=== PATIENT | female | born 1950 | race Caucasian/White ===

== ENCOUNTER 2016-11-28 23:41 | Inpatient (IN) | payer OTHER, MEDICAID ==
[~2016-11-28] VITALS: Ht 160 cm; Wt 79.0 kg
--- NOTE | ~2016-11-28 | PR ---
[place], [place] [facility]GR[id number] UN[facility] #: [id number] ROOM: 317 DOCTOR: Karina RODRIGUEZ,GERHARD BIRTHDATE: [birth year] DOS: 12/03/2016 SUBJECTIVE: The patient seen and spoke with the staff. Per staff, the patient is doing well. Still isolated, but no behavioral problems or issues. Med compliant. The patient was pleasant, cooperative. She looks bright. She changed her clothes and took a shower. She said that she is feeling better, taking her medication regularly and did not have any side effects. She denied depressed mood or hopelessness. Denied any other neurovegetative signs and symptoms of depression. She reports good sleep and appetite. MENTAL STATUS EXAMINATION: The patient was pleasant, cooperative. Described her mood as "better." Affect, mood congruent. Thought process goal directed. No flight of ideas, loosening of association. She denied auditory or visual hallucination. No delusion or paranoia noted. She denied suicidal ideation, intent or plan. She also denied homicidal ideation, intent or plan. Insight and judgment fair. ASSESSMENT: Schizoaffective disorder. PLAN: 1. Continue current medication and care. 2. Continue redirection. 3. Supportive care. GERHARD RODRIGUEZ MD CM:COLUMBA [phone] Karina RODRIGUEZ 12/04/16 0139 interface
--- NOTE | ~2016-11-28 | PR ---
[place], [place] PROGRESS NOTE [id number] UNIT #: [id number] ROOM: 317 DOCTOR: Karina RODRIGUEZ,GERHARD BIRTHDATE: [birth year] DOS: 12/01/2016 SUBJECTIVE: The patient seen and spoke with the staff. Per staff, the patient is doing well. Slept all night. Took her medication and attending groups. She did not have any behavior problems or issues. The patient was pleasant, cooperative. She was in her room. She said that she is doing good. She is taking her medication regularly and did not have any side effect. Still have some paranoia, but she said that they are getting better. She reports good sleep and appetite. MENTAL STATUS EXAMINATION: The patient was pleasant and cooperative. Described her mood as "okay." Affect was guarded. Thought process goal directed. No flight of ideas, loosening of association. She denied auditory or visual hallucination. She still had some paranoia. Denied suicidal ideation, intent or plan. She also denied homicidal ideation, intent or plan. ASSESSMENT: Schizoaffective disorder. PLAN: 1. Continue current medication and care. 2. Continue redirection. 3. Encourage activity and groups. GERHARD RODRIGUEZ MD CM:COLUMBA 0200 Karina RODRIGUEZ 12/02/16 0159 interface
--- NOTE | ~2016-11-28 | DS ---
[place], [place] DISCHARGE SUMMARY NAME: BECKI RUSSELL UNIT #: [id number] ROOM: 317 DOCTOR: Karina RODRIGUEZGERHARD BIRTHDATE: [birth year] DOS: 12/08/2016 HISTORY OF PRESENT ILLNESS: The patient was seen and chart reviewed. A 65-year-old white female with long history of schizoaffective disorder, who was actually brought into the ER by EMS after her primary care physician called. Reportedly, the patient went to see her primary care physician, Dr. Clark, who then called the ambulance to take her to the ER because the patient was stating that she wanted to kill herself. She said that she was thinking about shooting herself on her head. In the ER, the patient got medically cleared and then admitted to the psychiatric unit for further care and stabilization. PAST PSYCHIATRIC HISTORY: The patient mentioned that she had 6-7 prior psychiatric hospitalizations, ____ prior suicide attempts. No suicide in the family. Denied having any gun at home. PAST MEDICAL HISTORY: Significant for hypertension, status post stroke. SOCIAL HISTORY: She was born and raised in [place], [place], had 4 years of college, never , no kids. She is retired now, on SSI. She lives by herself. She has a sister with whom she does not have any good relationship with. She denied any history of physical or sexual abuse. SUBSTANCE ABUSE HISTORY: The patient denied any drugs or alcohol. ADMISSION MENTAL STATUS EXAMINATION: The patient was pleasant, cooperative. She was alert and oriented to day, date, month and year. Speech was low tone. Described her mood as "down." Affect was broad range. Thought process goal directed. No flight of ideas, loosening of association. She reports auditory hallucination. Denied any visual hallucinations. She reports being paranoid and delusional. She denied suicidal ideation, intent or plan. She also denied homicidal ideation, intent or plan. ADMISSION DIAGNOSES: Schizoaffective disorder, currently psychotic and paranoid. HOSPITAL COURSE: The patient got admitted for stabilization. We started her on Abilify 10 mg twice a day and Depakote 1000 mg at night. The patient tolerated that medication well, but continued to have some depressive symptoms. We started on Paxil 20 mg in the morning. The patient mentioned that she took Paxil in the past and that helped her. During the next couple of days, the patient improved significantly. During her stay, she was also seen by the medical team just to make sure that she did not have any acute medical process going on. The treatment team saw her regularly, 1:1 therapy, psychoeducation and coping skill was provided to the patient. The patient started improving slowly. Her mood improved. She looks brighter. She was sleeping well. Her appetite was good. She was attending groups and other activities in the unit. It should be noted that during the course of her hospitalization, the patient has never been a threat to herself or anyone else. She was pleasant, cooperative and engaging. She took her medication regularly and followed the unit rules appropriately. The treatment team felt that the patient was at [place], [place] DISCHARGE SUMMARY NAME: BECKI RUSSELL UNIT #: [id number] ROOM: [facility] DOCTOR: Karina RODRIGUEZ,GERHARD BIRTHDATE: 50 maximum benefit out of the acute hospitalization and can be discharged back to her apartment on 12/08/2016. MENTAL STATUS EXAMINATION: At discharge, alert and oriented x 4, pleasant and cooperative. Speech fluent with normal volume and tone. She described her mood as "good." ____ congruent. Thought process goal directed. No flight of ideas, loosening of association. She denied auditory or visual hallucination. No delusion or paranoia noted. She denied suicidal ideation, intent or plan. She also denied homicidal ideation, intent or plan. Insight and judgment fair. ASSESSMENT: Schizoaffective disorder. DISCHARGE MEDICATIONS: Include Paxil 20 mg in the morning and Abilify 10 mg twice a day, Depakote 1000 mg at night. INSTRUCTION AND FOLLOWUP APPOINTMENT: 1. The patient was advised to take her medication regularly. 2. The patient was advised not to use any drugs or alcohol. 3. The patient was advised to go for followup regularly. 4. The patient was advised to call 911 if there is any crisis. GERHARD RODRIGUEZ MD CM:TELLO [id number] Karina RODRIGUEZ 12/09/16 1033 interface
--- NOTE | ~2016-11-28 | PR ---
[place], [place] PROGRESS NOTE [id number] UNIT #: [id number] ROOM: 317 DOCTOR: Karina RODRIGUEZ,GERHARD BIRTHDATE: [birth year] DOS: 12/04/2016 SUBJECTIVE: The patient seen and spoke with the staff. Per staff, the patient is doing better self, but still guarded and paranoid at times. The patient was in the day area, sitting by herself, say that she is feeling a little bit better. She feels that the medication is helping her, still hear voices, say bad thing about her, not command type. Denied any other psychotic symptoms. She denied side effect from the medication. She reports good sleep and appetite. MENTAL STATUS EXAMINATION: The patient was pleasant, cooperative, described her mood as "good." Affect guarded. Thought process goal directed. No flight of ideas, loosening of associations. She reports auditory hallucination. Denied visual hallucination and some paranoia. No overt delusion noted. Denied suicidal ideation, intent or plan. She also denied homicidal ideation, intent or plan. ASSESSMENT: Schizoaffective disorder. PLAN: 1. Continue current medication. 2. Continue redirection. 3. Discharge planning. GERHARD RODRIGUEZ MD CM:COLUMBA [id number] Karina RODRIGUEZ 12/05/16 1325 interface
--- NOTE | ~2016-11-28 | PR ---
[place], [place] PROGRESS NOTE [id number] UNIT #: [id number] ROOM: 317 DOCTOR: Karina RODRIGUEZ,GERHARD BIRTHDATE: [birth year] DOS: 11/30/2016 SUBJECTIVE: The patient seen and spoke with the staff. Per staff, the patient took all of her medications. Still guarded and paranoid. No visual problems or issues. The patient was pleasant and cooperative. She reports doing okay, said that she took all of her medication and did not have any side effect. She seems to be not interested in talking as much. MENTAL STATUS EXAMINATION: The patient was pleasant, cooperative. She described her mood as "okay." Affect flat. Thought process goal directed. No flight of ideas, loosening of association. She denied auditory or visual hallucination, but seems responding to stimuli. No overt delusions noted, but she is still paranoid. Denied suicidal ideation, intent or plan. She also denied homicidal ideation, intent or plan. Insight and judgment impaired. ASSESSMENT: Schizoaffective disorder. PLAN: 1. Continue current medication and care. 2. Continue redirection. 3. Encourage activity and groups. GERHARD RODRIGUEZ MD CM:PNTRANS 07 Karina RODRIGUEZ 12/01/16 0058 interface
--- NOTE | ~2016-11-28 | PR ---
[place], [place] PROGRESS NOTE NAME: BECKI RUSSELL UNIT #: [id number] ROOM: 317 DOCTOR: Karina RODRIGUEZ,GERHARD BIRTHDATE: [birth year] DOS: 12/05/2016 SUBJECTIVE: The patient seen and spoke with the staff. Per staff, the patient is doing well. No behavioral problems or issues. Medication compliant. The patient was pleasant, cooperative. She reported doing well. She reports good sleep and appetite. She denied any depressed mood or hopelessness. Denied any other neurovegetative signs and symptoms of depression. She denied any psychotic symptoms also. MENTAL STATUS EXAMINATION: The patient was pleasant, cooperative, described her mood as "good." Affect, mood congruent. Thought process goal directed. No flight of ideas, loosening of association. She denied auditory or visual hallucination. No delusion or paranoia noted. She denied any suicidal ideation, intent or plan. She also denied any homicidal ideation, intent or plan. Insight and judgment fair. ASSESSMENT: Schizoaffective disorder. PLAN: 1. Continue current medication and care. 2. Continue redirection. 3. Supportive care. GERHARD RODRIGUEZ MD CM:COLUMBA [id number] Karina RODRIGUEZ 12/05/16 1348 interface
--- NOTE | ~2016-11-28 | PR ---
[place], [place] PROGRESS NOTE NAME: [id number] UNIT #: [id number] ROOM: 317 DOCTOR: Karina RODRIGUEZ,GERHARD BIRTHDATE: [birth year] DOS: 12/07/2016 SUBJECTIVE: The patient seen and I spoke with the staff. Per staff, the patient is doing well. No behavior problems or issues. Medication compliant and slept well last night. The patient was pleasant, cooperative. She was in her room. She reports doing well. She said the medication is helping her. She reported good sleep and appetite. Denied depressed mood or hopelessness. Denied any thoughts of harming herself or anyone else. She said that she feels comfortable going back to her apartment. MENTAL STATUS EXAMINATION: The patient was pleasant and cooperative. Described her mood as "okay." Affect, mood congruent. Thought process goal directed. No flight of ideas or loosening of association. She denied auditory or visual hallucination. No delusion or paranoia noted. She denied suicidal ideation, intent or plan. She also denied homicidal ideation, intent or plan. Insight and judgment fair. ASSESSMENT: Schizoaffective disorder. PLAN: 1. Continue current medication and care. 2. Continue redirection. 3. Supportive care. 4. Discharge planning. GERHARD RODRIGUEZ MD CM:PNTRANS [id number] Karina RODRIGUEZ 12/07/16 2357 interface
--- NOTE | ~2016-11-28 | WRIGHTHP ---
[place], [place] PATIENT HISTORY AND PHYSICAL EXAM NAME: BECKI RUSSELL UNIT #: [id number] ROOM: 317 DOCTOR: Karina RODRIGUEZ MAHBOOB BIRTHDATE: [birth year] DOS: 11/29/2016 PSYCHIATRIC HISTORY AND PHYSICAL REASON FOR HOSPITALIZATION: Increased depression, psychosis and suicidal ideation with plan to shoot herself. HISTORY OF PRESENT ILLNESS: The patient was seen and chart reviewed. A 65-year-old white female with long history of schizoaffective disorder, who was actually brought into the ER by EMS after her primary care physician called. Reportedly, the patient went to see her primary care physician, Dr. Clark, who then called the ambulance to take her to the ER because the patient was stating that she wanted to kill herself. She said that she was thinking about shooting herself on her head. In the ER, the patient got medically cleared and then admitted to the psychiatric unit for further care and stabilization. The patient was pleasant and cooperative during the interview. She reports being increasingly depressed and down since she had the stroke in August. She said that she stopped taking her medication since then and her symptoms started getting worse. She reports hearing voices telling her to kill herself. She was also seeing things that were not there. She got scared, depressed, went to her primary care physician and told him about that. The patient was started on Abilify and Depakote, which she took and then did not have any side effect. She denied any symptoms of alycia or hypomania at this moment. PAST MEDICAL HISTORY: Significant for hypertension, status post stroke. PAST PSYCHIATRIC HISTORY: The patient mentioned that she had 6-7 prior psychiatric hospitalizations, ____ prior suicide attempts. No suicide in the family. Denied having any gun at home. SUBSTANCE ABUSE HISTORY: The patient denied any drugs or alcohol. SOCIAL HISTORY: She was born and raised in [place], [place], had 4 years of college, never , no kids. She is retired now, on SSI. She lives by herself. She has a sister with whom she does not have any good relationship with. She denied any history of physical or sexual abuse. MENTAL STATUS EXAMINATION: The patient was pleasant, cooperative. She was alert and oriented to day, date, month and year. Speech was low tone. Described her mood as "down." Affect was broad range. Thought process goal directed. No flight of ideas, loosening of association. She reports auditory hallucination. Denied any visual hallucinations. She reports being paranoid and delusional. She denied suicidal ideation, intent or plan. She also denied homicidal ideation, intent or plan. ASSESSMENT: Schizoaffective disorder, currently psychotic and paranoid. PLAN: 1. I started her on Abilify 10 mg twice a day. I also started her on Depakote [place], [place] PATIENT HISTORY AND PHYSICAL EXAM NAME: BECKI RUSSELL UNIT #: [id number] ROOM: [facility] DOCTOR: Karina RODRIGUEZ,GERHARD BIRTHDATE: 50 500 mg p.o. b.i.d. 2. We need to get collateral information. 3. Continue redirection. 4. One to one therapy, psychoeducation, coping skills. 5. Encourage activity in groups. GERHARD RODRIGUEZ MD CM:HISPHYS:PATIENT HISTORY AND PHYSICAL EXAMINATION 29 [phone] Karina RODRIGUEZ 11/29/162204 interface
--- NOTE | ~2016-11-28 | PR ---
[place], [place] PROGRESS NOTE NAME: [facility]LL [id number] UNIT #: [id number] ROOM: 317 DOCTOR: Karina RODRIGUEZ,GERHARD BIRTHDATE: [birth year] DOS: 12/06/2016 PSYCHIATRIC PROGRESS NOTE SUBJECTIVE: The patient seen and spoke with the staff. Per staff, the patient is doing well. No behavioral problems or issues. Med compliant. The patient was pleasant, cooperative. She was in the day area. She says that she is feeling better. Denied depressed mood or hopelessness. Denied any other neurovegetative signs and symptoms of depression. MENTAL STATUS EXAMINATION: The patient was pleasant and cooperative, described her mood as "good." Affect, mood congruent. Thought process goal directed. No flight of ideas, loosening of association. She denied auditory or visual hallucination. No delusion or paranoia noted. She denied suicidal ideation, intent or plan. She also denied homicidal ideation, intent or plan. Insight and judgment poor to fair. ASSESSMENT: Schizoaffective disorder. PLAN: 1. Continue current medication and care. 2. Continue redirection. 3. Discharge planning. GERHARD RODRIGUEZ MD CM:COLUMBA 07 02 Karina RODRIGUEZ 12/07/16 190 interface
--- NOTE | ~2016-11-28 | PR ---
[place], [place] PROGRESS NOTE NAME: BECKI RUSSELL UNIT #: [id number] ROOM: 317 DOCTOR: Karina RODRIGUEZ,GERHARD BIRTHDATE: [birth year] DOS: 12/02/2016 SUBJECTIVE: The patient seen and spoke with the staff. Per staff, the patient is doing well. Medication compliant. No behavioral problems or issues. The patient was pleasant and cooperative. Reports being anxious and down, but states that she is feeling much better than before. She said she took Paxil in the past and would like to go back on the medication. MENTAL STATUS EXAMINATION: The patient was pleasant, cooperative. Described her mood as "down." Affect broad range. Thought process goal directed. No flight of ideas, loosening of association. She denied auditory or visual hallucination. No delusion or paranoia noted. She denied suicidal ideation, intent or plan. She also denied homicidal ideation, intent or plan. Insight and judgment fair. ASSESSMENT: Schizoaffective disorder. PLAN: 1. I will add Paxil 20 mg in the morning. 2. Continue redirection. 3. Supportive care. 4. Continue other medication. GERHARD RODRIGUEZ MD CM:COLUMBA 0923 1223 Karina RODRIGUEZ 12/02/16 1224 interface
[2016-11-28] MEDS ORDERED: PAXIL40 M1 PO (23:50)
[2016-11-28] MEDS ORDERED: RISPERDAL2 M1 PO (23:51)
[2016-11-28] MEDS ORDERED: DEPAKOTE500 M1 PO (23:53)
[2016-11-28] MEDS ORDERED: NORVASC10 MG PO (23:54)
[2016-11-28] MEDS ORDERED: PLAVIX75 M1 PO (23:56)
[2016-11-28] MEDS ORDERED: LIPITOR10 MG PO (23:57)
[2016-11-28] MEDS ORDERED: VITAMIN D5000 UNIT PO (23:58)
[2016-11-28] MEDS ORDERED: ASPIRIN LOW DOS81 MG PO (23:59)
[2016-11-29] MEDS ORDERED: 'CLONIDINE0.1 MG PO (00:01)
[2016-11-29 00:52] VITALS: BP 146/68
[2016-11-29 02:30] VITALS: BP 146/68
[2016-11-29 06:34] LABS: BASO # 0.1 10*3/uL (0.0-0.1); BASO % 0.8 % (0.0-1.0); EOS # 0.2 10*3/uL (0.0-0.4); EOS % 2.1 % (1.0-4.0); HEMATOCRIT 34.7 % (37.0-47.0); HEMOGLOBIN 11.4 g/dl (12.0-16.0); LYMPH # 3.1 10*3/uL (1.3-4.4); LYMPH % 34.5 % (27.0-41.0); MEAN CELL VOLUME 84.4 fl (81.0-99.0); MEAN CORPUSCULAR HGB 27.7 pg (27.0-31.0); MEAN CORPUSCULAR HGB CONC 32.9 g/dl (33.0-37.0); MEAN PLATELET VOLUME 10.1 fl (9.6-12.3); MONO # 0.5 10*3/uL (0.1-1.0); MONO % 5.8 % (3.0-9.0); NEUT # 5.1 10*3/uL (2.3-7.9); NEUT % 56.5 % (47.0-73.0); PLATELET COUNT AUTOMATED 414 10*3/uL (130-400); RED BLOOD COUNT 4.11 10*6/uL (4.10-5.10); RED CELL DISTRI WIDTH 13.5 % (0-14.5)
[2016-11-29 07:06] LABS: ALBUMIN 3.1 gm/dl (3.1-4.5); ALKALINE PHOSPHATASE 128 U/L (45-117); BILIRUBIN, TOTAL 0.3 mg/dl (0.2-1.0); BUN 8 mg/dl (7-24); CARBON DIOXIDE 29 mmol/L (21-32); CHLORIDE 106 mmol/L (98-107); CHOLESTEROL 116 mg/dL (<200); EST GLOM FILT AFRICAN AMERICAN > 60 ml/min; GLUCOSE 96 mg/dL (65-99); HDL CHOLESTEROL 47 mg/dl (40-60); LDL CHOLESTEROL 47 mg/dL (9-159); POTASSIUM 3.2 mmol/L (3.5-5.1); SGOT/AST 19 IU/L (3-35); SGPT/ALT 26 U/L (12-78); SODIUM 142 mmol/L (136-145); TOTAL PROTEIN 6.7 gm/dL (6.4-8.2); TRIGLYCERIDES 109 mg/dl (<150); VLDL CHOLESTEROL 22 mg/dL (6-40)
[2016-11-29 08:00] VITALS: BP 150/82
[2016-11-29 08:15] LABS: HEMOGLOBIN A1c 6.3 % (4.8-5.6)
[2016-11-29 08:29] LABS: VITAMIN D, 25-HYDROXY 9.6 ng/mL (30-100)
[2016-11-29 08:30] LABS: FOLIC ACID 19.21 ng/mL (>5.38)
[2016-11-29 12:29] LABS: BILIRUBIN NEGATIVE (NEGATIVE); BLOOD NEGATIVE (NEGATIVE); CLARITY SL CLOUDY (CLEAR); COLOR YELLOW (YELLOW); GLUCOSE 1+ (NEGATIVE); KETONE NEGATIVE (NEGATIVE); LEUKO ESTERASE 2+ (NEGATIVE); NITRITE NEGATIVE (NEGATIVE); PROTEIN NEGATIVE (NEGATIVE); SPECIFIC GRAVITY <= 1.005 (1.005-1.030); UROBILINOGEN 0.2 E.U./dl (0.2-1.0)
[2016-11-29 13:03] LABS: BACTERIA 1+; URINE REFLEX COMMENT YES (NO); WBC 16-20 wbc/hpf (0-5)
[2016-11-29 20:00] VITALS: BP 138/72
[2016-11-30 08:06] VITALS: BP 169/81
[2016-11-30 20:13] VITALS: BP 146/81; BP 98/60
[2016-12-01 07:56] VITALS: BP 140/80
[2016-12-01 20:00] VITALS: BP 148/73
[2016-12-02 08:29] VITALS: BP 127/73
[2016-12-02 19:58] VITALS: BP 147/83
[2016-12-03 08:00] VITALS: BP 138/85
[2016-12-03 20:31] VITALS: BP 140/66
[2016-12-04 10:48] VITALS: BP 136/84
[2016-12-04 20:23] VITALS: BP 135/63
[2016-12-05 08:09] VITALS: BP 136/74
[2016-12-05 19:53] VITALS: BP 140/66
[2016-12-06 08:56] VITALS: BP 142/75
[2016-12-06] MEDS ORDERED: PAROXETINE HCL20 MG PO (19:12)
[2016-12-06] MEDS ORDERED: ARIPIPRAZOLE10 MG PO (19:12)
[2016-12-06] MEDS ORDERED: DIVALPROEX SOD500 M1 PO (19:12)
[2016-12-06 20:16] VITALS: BP 134/62
[2016-12-07 07:59] VITALS: BP 154/66
[2016-12-07 19:48] VITALS: BP 151/55
[2016-12-08 08:02] VITALS: BP 151/77
[2016-12-08] MEDS ORDERED: OMEPRAZOLE D/R20 MG PO (11:13)
== END 2016-12-08 12:55 | disposition home or self-care (01) | DRG 885 ==
LOC: 3N 23:41
PROVIDERS: Psychiatry & Neurology Psychiatry
DX: F25.9 Schizoaffective disorder, unspecified (principal); F33.9 Major depressive disorder, recurrent, unspecified; I10 Essential (primary) hypertension; E55.9 Vitamin D deficiency, unspecified; K59.09 Other constipation; E87.6 Hypokalemia; Z87.891 Personal history of nicotine dependence; Z90.710 Acquired absence of both cervix and uterus; Z79.899 Other long term (current) drug therapy; Z86.73 Personal history of transient ischemic attack (TIA), and cerebral infarction without residual deficits; Z80.3 Family history of malignant neoplasm of breast; Z80.0 Family history of malignant neoplasm of digestive organs; Z83.3 Family history of diabetes mellitus; Z82.49 Family history of ischemic heart disease and other diseases of the circulatory system

== ENCOUNTER 2020-06-17 14:46 | Inpatient (IN) | payer MEDICARE, OTHER ==
[~2020-06-17] VITALS: Ht 167.6 cm; Wt 90.7 kg
[~2020-06-17 14:46] MED LIST: 'CLONIDINE0.1 MG PO; AQUAPHOR396 GM T; ARIPIPRAZOLE10 MG PO; ASPIRIN LOW DOS81 MG PO; BISACODYL10 MG R; DEPAKOTE SPRIN125 MG PO; DEPAKOTE500 M1 PO; DERMAPHOR OINT106 GM T; DIVALPROEX SOD500 M1 PO; GLUCOPHAGE500 M1 PO; HYDROXYZINE HCL25 MG PO; INVEGA3 MG PO; IRON325 M1 PO; LIPITOR10 MG PO; MEGACE 40400 MG/10 PO; MICONAZOLE 745 GM T; MILK OF MA400 MG/5 M PO; NORVASC10 MG PO; NYSTATIN OINTME30 GM T; OMEPRAZOLE D/R20 MG PO; PAROXETINE HCL20 MG PO; PAXIL40 M1 PO; PLAVIX75 M1 PO; PROMETHAZINE12.5 MG R; PROTONIX40 MG PO; REMERON15 M2 PO; RISPERDAL2 M1 PO; ROBITUSSIN30 MG/5 ML PO; SANTYL30 GM T; SYNTHROID25 MCG PO; TYLENOL PM EX-1 EACH PO; TYLENOL325 M2 PO; VENTOLIN 02.5 MG/3 M INH; VITAMIN D31250 MC1 PO; VITAMIN D5000 UNIT PO
[2020-06-17 16:00] VITALS: BP 144/67
[2020-06-17 20:00] VITALS: BP 196/57
[2020-06-17 20:15] VITALS: BP 144/78
[2020-06-18] VITALS: BP 178/80
[2020-06-18 04:00] VITALS: BP 138/70
[2020-06-18 06:44] LABS: BASO % 0.6 % (0.0-1.0); EOS # 0.2 10*3/uL (0.0-0.4); EOS % 3.3 % (1.0-4.0); HEMATOCRIT 25.7 % (37.0-47.0); LYMPH # 2.5 10*3/uL (1.3-4.4); MEAN CELL VOLUME 87.4 fl (81.0-99.0); MEAN CORPUSCULAR HGB 27.9 pg (27.0-31.0); MEAN CORPUSCULAR HGB CONC 31.9 g/dl (33.0-37.0); MEAN PLATELET VOLUME 9.9 fl (9.6-12.3); MONO # 0.5 10*3/uL (0.1-1.0); MONO % 8.3 % (3.0-9.0); NEUT # 2.2 10*3/uL (2.3-7.9); NEUT % 41.4 % (47.0-73.0); PLATELET COUNT AUTOMATED 374 10*3/uL (130-400); RED BLOOD COUNT 2.94 10*6/uL (4.10-5.10); RED CELL DISTRI WIDTH 17.5 % (0-14.5); WHITE BLOOD COUNT 5.4 10*3/uL (4.8-10.8)
[2020-06-18 07:12] LABS: ALBUMIN 1.8 gm/dl (3.1-4.5); CREATININE 1.4 mg/dL (0.55-1.02); POTASSIUM 2.6 mmol/L (3.5-5.1); TOTAL PROTEIN 5.2 gm/dL (6.4-8.2)
[2020-06-18 08:42] LABS: VITAMIN D, 25-HYDROXY 95.2 ng/mL (30-100)
[2020-06-18 12:00] VITALS: BP 152/71
[2020-06-18 16:00] VITALS: BP 142/90
[2020-06-18 20:00] VITALS: BP 156/67
[2020-06-19] VITALS (8 sets, daily range): BP systolic 115–171; BP diastolic 50–97
[2020-06-19 06:39] LABS: BASO % 0.6 % (0.0-1.0); EOS # 0.2 10*3/uL (0.0-0.4); EOS % 3.4 % (1.0-4.0); HEMATOCRIT 26.3 % (37.0-47.0); LYMPH # 1.6 10*3/uL (1.3-4.4); LYMPH % 31.7 % (27.0-41.0); MEAN CELL VOLUME 87.7 fl (81.0-99.0); MEAN CORPUSCULAR HGB CONC 31.9 g/dl (33.0-37.0); MEAN PLATELET VOLUME 10.2 fl (9.6-12.3); MONO # 0.4 10*3/uL (0.1-1.0); MONO % 8.1 % (3.0-9.0); NEUT # 2.8 10*3/uL (2.3-7.9); NEUT % 55.8 % (47.0-73.0); PLATELET COUNT AUTOMATED 391 10*3/uL (130-400); RED CELL DISTRI WIDTH 17.5 % (0-14.5)
[2020-06-19 07:13] LABS: ALBUMIN 1.8 gm/dl (3.1-4.5); CREATININE 1.18 mg/dL (0.55-1.02); POTASSIUM 2.8 mmol/L (3.5-5.1); TOTAL PROTEIN 5.4 gm/dL (6.4-8.2)
[2020-06-19 16:22] LABS: CREATININE 1.22 mg/dL (0.55-1.02); POTASSIUM 3.4 mmol/L (3.5-5.1)
[2020-06-20] VITALS: BP 147/53
[2020-06-20 06:28] LABS: CREATININE 1.29 mg/dL (0.55-1.02); POTASSIUM 3.7 mmol/L (3.5-5.1)
[2020-06-20 08:00] VITALS: BP 139/68
[2020-06-20 12:00] VITALS: BP 129/72
[2020-06-20 13:40] LABS: BILIRUBIN Negative (Negative); BLOOD Negative (Negative); CLARITY Clear (Clear); COLOR Yellow (Yellow); GLUCOSE Negative (Negative); KETONE Trace (Negative); LEUKO ESTERASE Negative (Negative); NITRITE Negative (Negative); PH 5.5 (4.5-8.0); SPECIFIC GRAVITY 1.015 (1.001-1.030)
[2020-06-20 16:00] VITALS: BP 143/56
[2020-06-20 20:00] VITALS: BP 150/69
[2020-06-20 23:42] VITALS: BP 133/69
[2020-06-21] VITALS: BP 152/65
[2020-06-21 06:35] LABS: BASO % 0.5 % (0.0-1.0); EOS # 0.2 10*3/uL (0.0-0.4); EOS % 3.1 % (1.0-4.0); HEMATOCRIT 24.9 % (37.0-47.0); LYMPH # 2.7 10*3/uL (1.3-4.4); LYMPH % 43.9 % (27.0-41.0); MEAN CORPUSCULAR HGB 28.3 pg (27.0-31.0); MEAN CORPUSCULAR HGB CONC 32.1 g/dl (33.0-37.0); MEAN PLATELET VOLUME 10.2 fl (9.6-12.3); MONO # 0.6 10*3/uL (0.1-1.0); NEUT # 2.6 10*3/uL (2.3-7.9); NEUT % 41.8 % (47.0-73.0); NUCLEATED RED BLOOD CELL 0.5 % (0.0-0.0); PLATELET COUNT AUTOMATED 366 10*3/uL (130-400); RED BLOOD COUNT 2.83 10*6/uL (4.10-5.10); RED CELL DISTRI WIDTH 17.8 % (0-14.5); WHITE BLOOD COUNT 6.1 10*3/uL (4.8-10.8)
[2020-06-21 07:01] LABS: CREATININE 1.14 mg/dL (0.55-1.02); POTASSIUM 3.4 mmol/L (3.5-5.1)
[2020-06-21 08:00] VITALS: BP 144/66
[2020-06-21 16:00] VITALS: BP 172/63
[2020-06-21 20:00] VITALS: BP 155/79
[2020-06-22] VITALS (7 sets, daily range): BP systolic 106–180; BP diastolic 56–76
[2020-06-22 06:55] LABS: BASO % 0.6 % (0.0-1.0); EOS # 0.2 10*3/uL (0.0-0.4); HEMATOCRIT 25.5 % (37.0-47.0); LYMPH # 2.1 10*3/uL (1.3-4.4); LYMPH % 40.7 % (27.0-41.0); MEAN CELL VOLUME 89.8 fl (81.0-99.0); MEAN CORPUSCULAR HGB 28.5 pg (27.0-31.0); MEAN CORPUSCULAR HGB CONC 31.8 g/dl (33.0-37.0); MEAN PLATELET VOLUME 10.3 fl (9.6-12.3); MONO # 0.5 10*3/uL (0.1-1.0); MONO % 9.8 % (3.0-9.0); NEUT # 2.3 10*3/uL (2.3-7.9); NEUT % 44.5 % (47.0-73.0); NUCLEATED RED BLOOD CELL 0.6 % (0.0-0.0); PLATELET COUNT AUTOMATED 339 10*3/uL (130-400); RED BLOOD COUNT 2.84 10*6/uL (4.10-5.10); RED CELL DISTRI WIDTH 17.7 % (0-14.5); WHITE BLOOD COUNT 5.2 10*3/uL (4.8-10.8)
[2020-06-22 07:14] LABS: BUN 7 mg/dl (7-24); CHLORIDE 112 mmol/L (98-107); CREATININE 1.08 mg/dL (0.55-1.02); POTASSIUM 3.3 mmol/L (3.5-5.1); SODIUM 144 mmol/L (136-145)
[2020-06-22] MEDS ORDERED: AMLODIPINE BESYL5 MG PO (12:52)
[2020-06-22] MEDS ORDERED: Carafate1 GM PO (12:53)
== END 2020-06-22 21:50 | DRG 682 ==
LOC: 5E 14:46
PROVIDERS: Hospitalist; Internal Medicine; Registered Nurse; Student in an Organized Health Care Education/Training Program; ADMIT Internal Medicine; ATTEND Internal Medicine
PROC: 0DB68ZX Excision of Stomach, Via Natural or Artificial Opening Endoscopic, Diagnostic (ICD-10-PCS; principal; 2020-06-22)
DX: N17.0 Acute kidney failure with tubular necrosis (principal); G93.41 Metabolic encephalopathy; E43 Unspecified severe protein-calorie malnutrition; L03.116 Cellulitis of left lower limb; L03.115 Cellulitis of right lower limb; E87.0 Hyperosmolality and hypernatremia; K29.70 Gastritis, unspecified, without bleeding; E55.9 Vitamin D deficiency, unspecified; Z20.822 Contact with and (suspected) exposure to COVID-19; E87.6 Hypokalemia; F30.8 Other manic episodes; I10 Essential (primary) hypertension; F25.9 Schizoaffective disorder, unspecified; K44.9 Diaphragmatic hernia without obstruction or gangrene; Z80.0 Family history of malignant neoplasm of digestive organs; Z83.3 Family history of diabetes mellitus; Z82.3 Family history of stroke; Z79.899 Other long term (current) drug therapy; Z68.32 Body mass index [BMI] 32.0-32.9, adult